=== PATIENT | female | born 1955 | race Caucasian/White ===

== ENCOUNTER → 2023-04-25 14:41 | Outpatient (CLI) | payer MEDICARE, OTHER, MEDICAID, SELFPAY ==
--- NOTE | 2023-04-25 14:49 | DI.CT.S_ITS ---
PROCEDURE: CT CHEST WO CON INDICATIONS: ROUTINE SCREENING TECHNIQUE: Noncontrast 2.0-2.5 mm thick sections acquired from the pulmonary apices to the posterior costophrenic angles. 7 mm thick axial MIP, and 5 mm coronal and sagittal reformats were then acquired. A low radiation dose technique was utilized. COMPARISON: None. FINDINGS: Image quality: Diagnostic, given the low radiation dose technique. Lungs and pleura: Bronchial thickening with a few regions of mucous impaction. Juxtapleural nodule with smooth margin and triangular shaped in the superior right upper lobe, favoring a benign intrapulmonary lymph node. Centrilobular ground-glass in the left lower lobe, probably post infectious/inflammatory. Multiple sub 4 millimeter solid pulmonary nodules are present, best seen on the MIPS imaging, location not listed due to negligible risk of malignancy. Mediastinum: Heart size is normal. No pericardial effusion. No mediastinal adenopathy by size criteria. Thoracic aorta and central pulmonary arteries are normal in size. Esophagus is normal in caliber. Large hiatal hernia with reflux. Marked LAD calcifications. Bones and chest wall: No suspicious bony lesions. No vertebral body compression fractures. No axillary or supraclavicular adenopathy by size criteria. Thyroid gland is unremarkable. 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 IMPRESSION: LUNG-RADS 2; continued annual follow-up if eligible. Large hiatal hernia. Dictated by: Harsh Bill M.D. on 04/25/2023 at 16:00 Approved by: Harsh Bill M.D. on 04/25/2023 at 16:04
--- NOTE | 2023-04-25 14:50 | DI.MG.S_ITS ---
BILATERAL DIGITAL SCREENING MAMMOGRAM 3D/2D WITH CAD: 04/25/2023 CLINICAL: Routine screening. Baseline exam. No prior exams were available for comparison. Both breasts are heterogeneously dense, which may obscure small masses (category c / 51-75% glandular tissue). Current study was also evaluated with a Computer Aided Detection (CAD) system. There are grouped calcifications in the left breast posterior depth superior region seen on the mediolateral oblique view only. No other significant masses, calcifications, or other findings are seen in either breast. Diffuse benign calcifications are present. IMPRESSION: INCOMPLETE: NEEDS ADDITIONAL IMAGING EVALUATION The grouped calcifications in the left breast are indeterminate. Additional views with possible ultrasound are recommended. Diffuse benign calcifications are present. Based on the Tyrer Cuzick model (a risk assessment model) the patient's lifetime risk is 10.3% and her 10 year risk is 5.1%. According to the ACR, ACS, and NCCN guidelines, an annual breast MRI exam along with mammogram is recommended if the patient's lifetime risk is 20% or greater. This exam was interpreted at Station ID: [id number]. NOTE: For mammograms, a report in lay terms will be sent to the patient. Approximately 15% of breast malignancies will not be visualized mammographically. In the management of a palpable breast mass, a negative mammogram must not discourage biopsy of a clinically suspicious lesion. Electronically Signed By: Colt Cordero M.D. lc/:04/26/2023 08:10:49 letter sent: Additional Imaging Needed ACR BI-RADS Category 0: Incomplete [id number]
--- NOTE | 2023-04-25 14:50 | DI.US.S_ITS ---
PROCEDURE: US ABD AORTA ANEURYSM SCREEN INDICATIONS: ROUTINE SCREENING TECHNIQUE: Real time scanning was performed of the aorta and iliac arteries, with image documentation. COMPARISON: None. FINDINGS: Aorta: Proximal aortic diameter measures 2.1 cm. Mid-aorta measures 1.2 cm. Distal aortic diameter is 1 cm. Iliac arteries: Right common iliac artery measures 0.7 cm. Left common iliac artery measures 0.8 cm. IMPRESSION: Negative for aneurysm. Dictated by: Richard Eubanks M.D. on 04/25/2023 at 15:19 Approved by: Richard Eubanks M.D. on 04/25/2023 at 15:19
--- NOTE | 2023-04-25 15:53 | DI.DEXA.S_ITS ---
Bone Density Report Name: DAVE GLASER Age: 67 Sex: Female Ethnicity: White Date of : 1955 Indication: postmenopausal; screening for osteoporosis; Referring Provider: LILIAN NUR Study: Bone densitometry was performed. Exam Date: April 25, 2023 Accession number: [id number] Bone Density: Region BMD T-score Z-score Classification Femoral Neck (Left) 0.518 -3.0 -1.4 Osteoporosis Total Hip (Left) 0.702 -2.0 -0.7 Osteopenia Femoral Neck (Right) 0.565 -2.6 -1.0 Osteoporosis Total Hip (Right) 0.692 -2.0 -0.8 Osteopenia Total Hip Mean 0.697 -2.0 -0.8 Osteopenia Total Forearm (Left) 0.496 -1.5 0.1 Osteopenia 1/3 Forearm (Left) 0.578 -1.9 -0.2 Osteopenia UD Forearm (Left) 0.399 -0.8 0.4 Normal World Health Organization criteria for BMD impression classify patients as: Normal (T-score at or above -1.0), Osteopenia (T-score between -1.0 and -2.5), or Osteoporosis (T-score at or below -2.5). 10-year Fracture Risk: FRAX not reported because: Some T-score for Spine Total or Hip Total or Femoral Neck at or below -2.5 Impression: The patient has osteoporosis, based on the Left Femoral Neck T-score. Discussion: INCREASED RISK OF FRACTURE. BONE DENSITY IS UNDESIRABLY LOW AT ONE OR MORE SKELETAL SITES, CONSISTENT WITH POSTMENOPAUSAL OSTEOPOROSIS. This patient's lowest T-score meets the World Health Organization's (WHO) criteria for osteoporosis at one or more sites (T-score -2.5 or below). In untreated patients, the risk of osteoporotic fracture increases approximately two-fold for each 1.0 SD decrease in T-score. Low bone density is not the only risk factor for fracture; also consider factors such as patient's age, frailty or poor health, risk of falling, risk of injury, previous osteoporotic fracture, family history of osteoporosis, cigarette smoking, low body weight, etc. Not everyone with low bone mineral density has osteoporosis; osteomalacia and other metabolic bone disorders should also be considered. Patients who have osteoporosis should be evaluated for specific diseases and conditions (secondary causes) that may cause or contribute to bone loss. The [place] [employer] (AACE) and National Osteoporosis Foundation (NOF) recommend pharmacologic intervention for all postmenopausal women whose T-score is in this range. The patient should follow a healthful lifestyle (good nutrition with adequate calcium and vitamin D, and appropriate weight-bearing exercise). Follow-Up: Consider a repeat BMD and Vertebral Fracture Assessment (VFA) exam in 2 years or sooner if medically necessary, to reassess this patient's status. Reported by: JIM JONES M.D. on 04/25/2023 5:08:00 PM.
== END ==
PROVIDERS: PCP Internal Medicine; Referring Provider Nurse Practitioner Family; Visit Provider Nurse Practitioner Family
DX: Z13.820 Encounter for screening for osteoporosis (principal); Z12.31 Encounter for screening mammogram for malignant neoplasm of breast; M81.0 Age-related osteoporosis without current pathological fracture; Z78.0 Asymptomatic menopausal state; Z12.2 Encounter for screening for malignant neoplasm of respiratory organs; Z13.6 Encounter for screening for cardiovascular disorders; K44.9 Diaphragmatic hernia without obstruction or gangrene; I72.8 Aneurysm of other specified arteries; F17.210 Nicotine dependence, cigarettes, uncomplicated
CPT/HCPCS: 71250; 76706; 77063; 77067; 77080; 77081

== ENCOUNTER → 2024-10-05 | Outpatient (CLI) | payer MEDICARE, OTHER, MEDICAID, SELFPAY ==
--- NOTE | 2024-10-05 12:48 | DI.CT.S_ITS ---
PROCEDURE: CT LUNG LOW DOSE SCREENING INDICATIONS: TOBACCO USE TECHNIQUE: Noncontrast 2.0-2.5 mm thick sections acquired from the pulmonary apices to the posterior costophrenic angles. 7 mm thick axial MIP, and 5 mm coronal and sagittal reformats were then acquired. For radiation dose reduction, the following was used: automated exposure control, adjustment of mA and/or kV according to patient size. COMPARISON: [facility], CT, CT CHEST WO CON, 04/25/2023, 15:01. FINDINGS: Image quality: Diagnostic Lungs and pleura: No significant airspace disease, pulmonary nodule, or pleural effusion. Subtle centrilobular nodules are seen in the lateral aspect of the lingula and middle lobe. Other small nodules for example in the right image 6/48 are stable. Mediastinum, heart, and esophagus: Moderate to large esophageal distension with debris. Large hiatal hernia. No pathologic lymph nodes by size criteria. Normal heart size. Coronary calcifications. Chest wall and thyroid: Unremarkable Upper abdomen: Probable calcified splenic artery aneurysm again seen. Buad-le-rmbovgyr fatty atrophy of the pancreas. Bones: There are degenerative changes. Nonacute appearing rib fractures. IMPRESSION: No suspicious pulmonary nodules. However, centrilobular new nodules are seen in the middle lobe and lingula, suggestive of infection/inflammation such as aspiration or nontuberculous mycobacterial infection. LUNG-RADS 0; 3 months low-dose chest CT is recommended Moderate large esophageal distension with debris with a large hiatal hernia. Other findings above. Dictated by: Colt Cordero M.D. on 10/15/2024 at 12:46 Approved by: Colt Cordero M.D. on 10/15/2024 at 12:51
== END ==
PROVIDERS: PCP Internal Medicine; Referring Provider Physician Assistant; Visit Provider Urology
DX: F17.210 Nicotine dependence, cigarettes, uncomplicated (principal); Z12.2 Encounter for screening for malignant neoplasm of respiratory organs; R91.8 Other nonspecific abnormal finding of lung field; K44.9 Diaphragmatic hernia without obstruction or gangrene; K86.89 Other specified diseases of pancreas
CPT/HCPCS: 71271